=== PATIENT | male | born 1995 | race Caucasian/White ===

== ENCOUNTER 2017-04-21 16:56 | Inpatient (IN) | payer OTHER ==
[2017-04-21] VITALS (8 sets, daily range): BP systolic 129–135; BP diastolic 60–80; PULSE 69–78; RESP 18–22; TEMP 98.1–99.7; O2SAT 97–100
[2017-04-21] MEDS ORDERED: MORPHINE SULFATE 4 MG/ML INJ ONE (17:01)
[2017-04-21] MEDS ORDERED: ONDANSETRON HCL 4 MG/2 ML VIAL ONE (17:01)
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
[2017-04-21 17:31] LABS: INTERNATIONAL NORMALIZED RATIO 1.2 RATIO; PROTHROMBIN TIME - PATIENT 12.2 SEC (9.8-11.6)
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
[2017-04-21 17:39] LABS: AUTOMATED NEUTROPHIL # 11.8 TH/MM3 (1.8-7.7); BASOPHIL % 0.2 % (0.0-2.0); HEMOGLOBIN 15.1 GM/DL (13.0-17.0); LYMPH % 9.7 % (9.0-44.0); LYMPHOCYTE # 1.4 TH/MM3 (1.0-4.8); MEAN CELL VOLUME 84.8 FL (80.0-100.0); MEAN PLATELET VOLUME 8.9 FL (7.0-11.0); MONOCYTE # 1.3 TH/MM3 (0-0.9); NEUT % 81.1 % (16.0-70.0); PLATELET COUNT 358 TH/MM3 (150-450); RED BLOOD COUNT 4.72 MIL/MM3 (4.50-5.90); RED CELL DISTRIBUTION WIDTH 13.2 % (11.6-17.2); WHITE BLOOD COUNT 14.5 TH/MM3 (4.0-11.0)
[2017-04-21 17:40] LABS: MEAN CORPUSCULAR HGB CONC 37.8 % (32.0-36.0)
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
[2017-04-21] MEDS ORDERED: LACTULOSE SYRUP 20 GM/30 ML CUP PO PRN (18:15)
[2017-04-21] MEDS ORDERED: MISCELLANEOUS NURSING INFORMATION XX SCH (18:15)
[2017-04-21] MEDS ORDERED: SENNOSIDES 8.6 MG TAB PO PRN (18:15)
[2017-04-21] MEDS ORDERED: BISACODYL 10 MG SUPP RECTAL PRN (18:15)
[2017-04-21] MEDS ORDERED: MAGNESIUM HYDROXIDE SUSP 30 ML CUP PO PRN (18:15)
[2017-04-21] MEDS ORDERED: ONDANSETRON HCL 4 MG/2 ML VIAL IV PUSH PRN (18:15)
[2017-04-21] MEDS ORDERED: CHLORHEXIDINE GLUCONATE 2 % 1 PACK (2 CLOTHS) TOP PRN (18:15)
[2017-04-21 18:22] LABS: BANDS 8 % (0-6); LYMPHOCYTES 12 % (9-44); MONOCYTES 4 % (0-8); NEUTROPHIL # MANUAL DIFF 12.2 TH/MM3 (1.8-7.7); POLYS (SEG NEUTROPHILS) 76 % (16-70)
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
[2017-04-21] MEDS ORDERED: IOHEXOL 350 MG/ML 10 ML VIAL (for RAD DIAG) IVCONTRAST ONE (18:49)
[2017-04-21] MEDS: SODIUM CHLOR 0.9% 1000 ML INJ 1,000 ML IV SCH (20:19)
[2017-04-21] MEDS: LIDOCAINE HCL 5% PATCH T-DERMAL SCH (20:19)
[2017-04-21] MEDS: ACETAMINOPHEN 1000 MG/100 ML 100 ML IV SCH (20:20)
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
[2017-04-21] MEDS: DOCUSATE SODIUM 50 MG/SENNA 8.6 MG TAB PO SCH (21:00)
[2017-04-22] VITALS (12 sets, daily range): BP systolic 120–137; BP diastolic 58–76; PULSE 57–105; RESP 16–28; TEMP 98.4–102.7; O2SAT 95–100
[2017-04-22 01:08] LABS: HEMATOCRIT 38.4 % (39.0-51.0); HEMOGLOBIN 13.1 GM/DL (13.0-17.0)
[2017-04-22] MEDS: ACETAMINOPHEN 1000 MG/100 ML 100 ML IV SCH ×4 (01:58→20:27)
[2017-04-22] MEDS: SODIUM CHLOR 0.9% 1000 ML INJ 1,000 ML IV SCH (02:08)
[2017-04-22] MEDS: CHLORHEXIDINE GLUCONATE 2 % 1 PACK (2 CLOTHS) TOP SCH (03:37)
[2017-04-22 04:02] LABS: AUTOMATED NEUTROPHIL # 7.1 TH/MM3 (1.8-7.7); BASOPHIL % 0.1 % (0.0-2.0); HEMATOCRIT 36.4 % (39.0-51.0); HEMOGLOBIN 12.7 GM/DL (13.0-17.0); LYMPH % 8.5 % (9.0-44.0); LYMPHOCYTE # 0.8 TH/MM3 (1.0-4.8); MEAN CELL VOLUME 85.7 FL (80.0-100.0); MEAN PLATELET VOLUME 8.5 FL (7.0-11.0); MONO % 12.4 % (0.0-8.0); MONOCYTE # 1.1 TH/MM3 (0-0.9); PLATELET COUNT 209 TH/MM3 (150-450); RED BLOOD COUNT 4.25 MIL/MM3 (4.50-5.90); RED CELL DISTRIBUTION WIDTH 13.2 % (11.6-17.2)
[2017-04-22] MEDS ORDERED: POTASSIUM CHLORIDE 25 MEQ EFFERVESCENT TAB PO PRN (04:15)
[2017-04-22] MEDS ORDERED: POTASSIUM CHLOR 20 MEQ PREMIX 100 ML IV PRN ×2 (04:15)
[2017-04-22] MEDS ORDERED: MAGNESIUM OXIDE 400 MG TAB PO PRN (04:15)
[2017-04-22] MEDS ORDERED: MAGNESIUM SULFATE INJ 2 GM in SODIUM CHLORIDE 0.9% INJ 96 ML IV PRN (04:15)
[2017-04-22] MEDS ORDERED: POTASSIUM PHOSPHATE MONOBASIC 500 MG TAB PO PRN (04:15)
[2017-04-22] MEDS ORDERED: SODIUM PHOSPHATE INJ 30 MMOL in SODIUM CHLOR 0.9% 250 ML INJ 240 ML IV PRN (04:15)
[2017-04-22] MEDS ORDERED: MAGNESIUM SULFATE INJ 4 GM in SODIUM CHLORIDE 0.9% INJ 92 ML IV PRN (04:15)
[2017-04-22] MEDS ORDERED: POTASSIUM CHLOR 40 MEQ PREMIX 100 ML IV PRN ×2 (04:15)
[2017-04-22] MEDS ORDERED: POTASSIUM PHOSPHATE MONOBASIC 500 MG TAB PO/TUBE PRN (04:15)
[2017-04-22] MEDS ORDERED: POTASSIUM PHOSPHATE INJ 30 MMOL in SODIUM CHLOR 0.9% 250 ML INJ 250 ML IV PRN (04:15)
[2017-04-22 04:26] LABS: ALBUMIN 3.5 GM/DL (3.4-5.0); AST (GOT) 678 U/L (15-39); BICARBONATE 26.1 MEQ/L (21.0-32.0); BLOOD UREA NITROGEN 19 MG/DL (7-18); CHLORIDE 108 MEQ/L (98-107); CREATININE 0.98 MG/DL (0.60-1.30); GLUCOSE,RANDOM 97 MG/DL (74-106); SODIUM (NA) 142 MEQ/L (136-145)
[2017-04-22 04:34] LABS: ALKALINE PHOSPHATASE 77 U/L (45-117); ALT (GPT) 1233 U/L (9-52); TOTAL PROTEIN 6.1 GM/DL (6.4-8.2)
--- NOTE | 2017-04-22 05:57 | RADRPT ---
EXAM DATE/TIME: 04/22/2017 04:58 [facility] COMPARISON: CHEST SINGLE AP, April 21, 2017, 16:56. INDICATIONS : Shortness of breath. MEDICAL HISTORY : None. SURGICAL HISTORY : None. ENCOUNTER: Subsequent ACUITY: 2 days PAIN SCORE: Non-responsive. LOCATION: Bilateral chest FINDINGS: A single view of the chest demonstrates the lungs to be symmetrically aerated without evidence of mas s, infiltrate or effusion. The cardiomediastinal contours are unremarkable. Osseous structures are intact. Old right clavicular fracture well-healed healed CONCLUSION: No acute disease. Vitaliy Maki Jr., MD on April 22, 2017 at 5:55 Board Certified Radiologist. This report was verified electronically.
[2017-04-22] MEDS: LIDOCAINE HCL 5% PATCH T-DERMAL SCH (07:47)
[2017-04-22] MEDS: FAMOTIDINE 20 MG TAB PO SCH ×2 (08:26→20:27)
[2017-04-22] MEDS: METHOCARBAMOL 500 MG TAB PO SCH ×3 (08:26→23:22)
[2017-04-22] MEDS: DOCUSATE SODIUM 50 MG/SENNA 8.6 MG TAB PO SCH ×2 (08:26→20:28)
[2017-04-22] MEDS: DEXT 5%-NACL 0.9% 1000 ML INJ 1,000 ML IV SCH ×2 (09:00→20:26)
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
[2017-04-22 17:24] LABS: HEMATOCRIT 33.8 % (39.0-51.0); HEMOGLOBIN 11.9 GM/DL (13.0-17.0)
[2017-04-23] VITALS (10 sets, daily range): BP systolic 111–125; BP diastolic 53–62; PULSE 77–111; RESP 19–22; TEMP 97.9–102.3; O2SAT 91–98
[2017-04-23] MEDS: ACETAMINOPHEN 1000 MG/100 ML 100 ML IV SCH ×2 (02:00→09:03)
[2017-04-23] MEDS: CHLORHEXIDINE GLUCONATE 2 % 1 PACK (2 CLOTHS) TOP SCH (02:32)
[2017-04-23 03:55] LABS: HEMATOCRIT 31.2 % (39.0-51.0); HEMOGLOBIN 11.1 GM/DL (13.0-17.0)
[2017-04-23] MEDS: DOCUSATE SODIUM 50 MG/SENNA 8.6 MG TAB PO SCH ×2 (09:03→20:23)
[2017-04-23] MEDS: LIDOCAINE HCL 5% PATCH T-DERMAL SCH (09:03)
[2017-04-23] MEDS: FAMOTIDINE 20 MG TAB PO SCH ×2 (09:04→20:23)
[2017-04-23] MEDS: DEXT 5%-NACL 0.9% 1000 ML INJ 1,000 ML IV SCH (09:04)
[2017-04-23] MEDS: METHOCARBAMOL 500 MG TAB PO SCH ×3 (09:04→23:52)
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
[2017-04-23] MEDS ORDERED: fentaNYL 50 MCG/HR PATCH T-DERMAL SCH (11:00)
[2017-04-23] MEDS ORDERED: ACETAMINOPHEN 1000 MG/100 ML 100 ML IV PRN (17:15)
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
[2017-04-24] VITALS (11 sets, daily range): BP systolic 127–153; BP diastolic 58–72; PULSE 76–109; RESP 14–24; TEMP 98.5–99.9; O2SAT 94–100
[2017-04-24] MEDS: CHLORHEXIDINE GLUCONATE 2 % 1 PACK (2 CLOTHS) TOP SCH (03:04)
[2017-04-24 04:08] LABS: AUTOMATED NEUTROPHIL # 5.3 TH/MM3 (1.8-7.7); BASOPHIL % 0.2 % (0.0-2.0); EOSINOPHIL # 0.1 TH/MM3 (0-0.4); EOSINOPHIL % 0.7 % (0.0-4.0); HEMATOCRIT 30.2 % (39.0-51.0); HEMOGLOBIN 10.7 GM/DL (13.0-17.0); LYMPH % 16.4 % (9.0-44.0); LYMPHOCYTE # 1.2 TH/MM3 (1.0-4.8); MEAN CELL VOLUME 85.2 FL (80.0-100.0); MEAN CORPUSCULAR HEMOGLOBIN 30.3 PG (27.0-34.0); MEAN CORPUSCULAR HGB CONC 35.6 % (32.0-36.0); MEAN PLATELET VOLUME 8.1 FL (7.0-11.0); MONO % 11.8 % (0.0-8.0); MONOCYTE # 0.9 TH/MM3 (0-0.9); NEUT % 70.9 % (16.0-70.0); PLATELET COUNT 162 TH/MM3 (150-450); RED BLOOD COUNT 3.54 MIL/MM3 (4.50-5.90); WHITE BLOOD COUNT 7.5 TH/MM3 (4.0-11.0)
[2017-04-24 04:29] LABS: ALBUMIN 2.9 GM/DL (3.4-5.0); AST (GOT) 207 U/L (15-39); BICARBONATE 29.8 MEQ/L (21.0-32.0); BLOOD UREA NITROGEN 11 MG/DL (7-18); CALCIUM 8.1 MG/DL (8.5-10.1); CHLORIDE 102 MEQ/L (98-107); CREATININE 0.84 MG/DL (0.60-1.30); GLOMERULAR FILTRATION RATE 116 ML/MIN (>89); GLUCOSE,RANDOM 89 MG/DL (74-106); SODIUM (NA) 139 MEQ/L (136-145)
[2017-04-24 04:54] LABS: ALKALINE PHOSPHATASE 87 U/L (45-117); ALT (GPT) 803 U/L (9-52)
[2017-04-24] MEDS: METHOCARBAMOL 500 MG TAB PO SCH ×2 (08:17→16:16)
[2017-04-24] MEDS: FAMOTIDINE 20 MG TAB PO SCH ×2 (08:17→21:01)
[2017-04-24] MEDS: DOCUSATE SODIUM 50 MG/SENNA 8.6 MG TAB PO SCH ×2 (08:17→21:01)
[2017-04-24] MEDS: LIDOCAINE HCL 5% PATCH T-DERMAL SCH (08:17)
[2017-04-24] MEDS ORDERED: PERI PO (10:23)
[2017-04-24] MEDS ORDERED: MAGN30S PO (10:23)
[2017-04-24] MEDS: GABAPENTIN 300 MG CAP PO SCH ×2 (12:20→17:46)
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
[2017-04-25] MEDS: METHOCARBAMOL 500 MG TAB PO SCH ×2 (00:17→07:23)
[2017-04-25] MEDS: CHLORHEXIDINE GLUCONATE 2 % 1 PACK (2 CLOTHS) TOP SCH (00:18)
[2017-04-25] MEDS ORDERED: IOHEXOL 350 MG/ML 10 ML VIAL (for RAD DIAG) IVCONTRAST ONE (01:02)
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
[2017-04-25 04:00] VITALS: BP 131/63; PULSE 108; RESP 18; TEMP 98.7; O2SAT 96
[2017-04-25 08:35] VITALS: BP 121/62; PULSE 80; RESP 18; TEMP 98.2; O2SAT 100
[2017-04-25] MEDS: GABAPENTIN 300 MG CAP PO SCH ×2 (09:53→12:28)
[2017-04-25] MEDS: DOCUSATE SODIUM 50 MG/SENNA 8.6 MG TAB PO SCH (09:53)
[2017-04-25] MEDS: FAMOTIDINE 20 MG TAB PO SCH (09:53)
[2017-04-25] MEDS: LIDOCAINE HCL 5% PATCH T-DERMAL SCH (09:54)
[2017-04-25] MEDS ORDERED: PERC5TAB12 PO (11:44)
[2017-04-25] MEDS ORDERED: METH500T3 PO (11:44)
[2017-04-26] MEDS ORDERED: REMOVE OLD DURAGESIC (FENTANYL) PATCH T-DERMAL SCH (11:00)
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
== END 2017-04-25 12:33 | disposition home or self-care (01) | DRG 964 ==
LOC: NEPI 16:56 → NEDA 17:56 → EDBD 17:56 → N03A 18:49 → N03B 04-22 14:30
PROVIDERS: ADMIT Surgery Trauma Surgery; ATTEND Surgery Trauma Surgery
DX: S36.116A Major laceration of liver, initial encounter (principal); S27.321A Contusion of lung, unilateral, initial encounter; S22.42XA Multiple fractures of ribs, left side, initial encounter for closed fracture; S27.0XXA Traumatic pneumothorax, initial encounter; S09.90XA Unspecified injury of head, initial encounter; S27.892A Contusion of other specified intrathoracic organs, initial encounter; F12.90 Cannabis use, unspecified, uncomplicated; R73.9 Hyperglycemia, unspecified; V86.55XA Driver of 3- or 4- wheeled all-terrain vehicle (ATV) injured in nontraffic accident, initial encounter; Y92.39 Other specified sports and athletic area as the place of occurrence of the external cause
CPT/HCPCS: 70450; 71045; 71260; 72125; 72170; 74177; 80048; 80053; 85007; 85014; 85018; 85025; 85027; 85610; 85730; 86850; 86900; 86901; 87641; 94150; 94667; 94668; 96374; 99291; G0390; J0131; J2270; J2405; J3010; J7030; J7042; Q9967